=== PATIENT | female | born 1985 | race Caucasian/White ===

== ENCOUNTER 2019-03-16 13:14 | Emergency (ER) | payer SELFPAY ==
[2019-03-16] MEDS ORDERED: ONDANSETRON HCL INJ/PF 4 MG/2 ML SDV IV ONE (14:41)
--- NOTE | 2019-03-16 14:43 | ER Document Report ---
ED Medical Screen (RME) - General Chief Complaint: Abdominal Pain Stated Complaint: ABDOMINAL PAIN Time Seen by Provider: 03/16/19 14:38 TRAVEL OUTSIDE OF THE [place] IN LAST 30 DAYS: No - HPI Notes: 03/16/19 14:42 Patient is a 33-year-old female with a history tubal ligation who presents complaining of right upper quadrant abdominal pain has been present for the past 3 weeks. Patient states that it is worse with food intake including fatty foods. Pain does not radiate. She has had associated nausea without vomiting. She is urinating normally and having normal bowel movements with the last one this morning. No melena or hematochezia. No other vaginal discharge, odor, or bleeding. On a side, patient states that she would like test for chlamydia gonorrhea although she has no lower pelvic pain or no discharge. She is concerned that she may have been exposed by partner. No fever. I have treated and performed a rapid initial assessment of this patient. A comprehensive ED assessment and evaluation of the patient, analysis of test results and completion of medical decision making process will be conducted by additional ED providers. PHYSICAL EXAMINATION: GENERAL: Well-appearing, well-nourished and in no acute distress. A&Ox4. Answers questions appropriately. Abd: + RUQ tenderness. No lower tenderness noted. - Related Data Allergies/Adverse Reactions: No Known Allergies Allergy (Verified 03/16/19 14:37) Past Medical History GI Medical History: Reports: Hx Endoscopy Musculoskeltal Medical History: Reports Hx Arthritis, Reports Hx Muscle Weakness, Reports Hx Musculoskeletal Deformity, Reports Hx Musculoskeletal Trauma Psychiatric Medical History: Reports: Hx Anxiety, Hx Post Traumatic Stress Disorder Traumatic Medical History: Reports: Hx Fractures Past Surgical History: Reports: Hx Section, Hx Gynecologic Surgery - LEEP, Hx Orthopedic Surgery, Hx Tubal Ligation - Immunizations Immunizations up to date: Yes Hx Diphtheria, Pertussis, Tetanus Vaccination: Yes - 2012 Physical Exam - Vital signs Vitals: Temp Pulse Resp BP Pulse Ox 98.2 F 90 16 99/71 L 100 03/16/19 14:03/16/19 14:03/16/19 14:03/16/19 14:03/16/19 14:09 Course - Vital Signs Vital signs: Temp Pulse Resp BP Pulse Ox 98.2 F 90 16 99/71 L 100 03/16/19 14:03/16/19 14:03/16/19 14:03/16/19 14:03/16/19 14:09
--- NOTE | 2019-03-16 15:48 | RADIOLOGY REPORT (SQ) ---
EXAM DESCRIPTION: U/S ABDOMEN LIMITED W/O DOP COMPLETED DATE/TIME: 03/16/2019 3:37 pm REASON FOR STUDY: RUQ pain COMPARISON: None. TECHNIQUE: Dynamic and static grayscale images acquired of the abdomen and recorded on PACS. Additio nal selected color Doppler and spectral images recorded. LIMITATIONS: None. FINDINGS: PANCREAS: No masses. Visualized pancreatic duct normal caliber. LIVER: No masses. Increased echogenicity. LIVER VASCULATURE: Normal directional flow of the main portal vein and hepatic veins. GALLBLADDER: Distended gallbladder containing numerous small gallstones. Mild gallbladder wall thick ening measuring up to 4 mm. No pericholecystic fluid. ULTRASOUND-DETECTED GUNN'S SIGN: Negative. INTRAHEPATIC DUCTS AND COMMON DUCT: CBD and intrahepatic ducts normal caliber. No filling defects. INFERIOR VENA CAVA: Normal flow. AORTA: No aneurysm. RIGHT KIDNEY: Normal size. Normal echogenicity. No solid or suspicious masses. No hydronephrosis. No calcifications. PERITONEAL AND RIGHT PLEURAL SPACE: No ascites or effusions. OTHER: No other significant findings. IMPRESSION: 1. Distended gallbladder containing numerous small gallstones. Mild gallbladder wall th ickening measuring up to 4 mm. No pericholecystic fluid. No biliary ductal dilation. Negative sono graphic Gunn's sign. HIDA may be used to further evaluate for patency of the cystic duct if desire d. 2. Hepatic steatosis. TECHNICAL DOCUMENTATION: JOB ID: [id number] [employer]- All Rights Reserved Reading location - IP/workstation name: [id number]
[2019-03-16 16:30] LABS: APPEARANCE,URINE SLIGHTLY-CLOUDY; BILIRUBIN,URINE NEGATIVE (NEGATIVE); COLOR,URINE YELLOW; GLUCOSE, URINE NEGATIVE (NEGATIVE); KETONES,URINE NEGATIVE (NEGATIVE); LEUKOCYTE ESTERASE,URINE SMALL (NEGATIVE); NITRITE,URINE POSITIVE (NEGATIVE); PROTEIN,URINE NEGATIVE (NEGATIVE); URINE SPECIFIC GRAVITY 1.017
[2019-03-16 16:42] LABS: ABSOLUTE BASOPHILS # (AUTO) 0.1 10^3/uL (0.0-0.2); ABSOLUTE EOSINOPHILS # (AUTO) 0.1 10^3/uL (0.0-0.6); ABSOLUTE LYMPHOCYTES (AUTO) 3.1 10^3/uL (0.5-4.7); ABSOLUTE MONOCYTES (AUTO) 1.1 10^3/uL (0.1-1.4); ABSOLUTE NEUT (AUTO) 8.6 10^3/uL (1.7-8.2); BASOPHILS % (AUTO) 0.6 % (0-2); HEMATOCRIT 39.5 % (36.0-47.0); HEMOGLOBIN 12.8 g/dL (12.0-15.5); LYMPHOCYTES % (AUTO) 23.8 % (13-45); MEAN CORPUSCULAR HEMOGLOBIN 24.4 pg (27.0-33.4); MEAN CORPUSCULAR HGB CONC 32.5 g/dL (32.0-36.0); MEAN CORPUSCULAR VOLUME 75 fl (80-97); MONOCYTES % (AUTO) 8.6 % (3-13); PLATELET COUNT 315 10^3/uL (150-450); RED BLOOD COUNT 5.25 10^6/uL (3.72-5.28); RED CELL DISTRIBUTION WIDTH 15.1 % (11.5-14.0); TOTAL CELLS COUNTED % (AUTO) 100 %; WHITE BLOOD COUNT 13.1 10^3/uL (4.0-10.5)
[2019-03-16] MEDS ORDERED: KETOROLAC TROMETHAMINE INJ/PF 30 MG/1 ML SDV IV ONE (17:05)
[2019-03-16] MEDS ORDERED: PROMETHAZINE HCL INJ 25 MG/1 ML VIAL IV ONE (17:06)
[2019-03-16 17:12] LABS: ALBUMIN 3.9 g/dL (3.5-5.0); ALKALINE PHOSPHATASE 78 U/L (38-126); ANION GAP 10 (5-19); ASPARTATE AMINO TRANSFERASE 79 U/L (14-36); BILIRUBIN,DIRECT 0.3 mg/dL (0.0-0.4); BILIRUBIN,TOTAL 0.6 mg/dL (0.2-1.3); BLOOD UREA NITROGEN 12 mg/dL (7-20); CALCIUM 9.4 mg/dL (8.4-10.2); CARBON DIOXIDE 25 mmol/L (22-30); CHLORIDE 105 mmol/L (98-107); GLUCOSE 87 mg/dL (75-110); POTASSIUM 4.3 mmol/L (3.6-5.0); TOTAL PROTEIN 7.1 g/dL (6.3-8.2)
[2019-03-16] MEDS ORDERED: AZITHROMYCIN 250 MG TABLET PO ONE (17:17)
[2019-03-16] MEDS ORDERED: CEFTRIAXONE INJ 250 MG VIAL IM ONE (17:17)
[2019-03-16] MEDS ORDERED: LIDOCAINE 1% INJ-PF (10 MG/ML) 30 ML SDV NEB ONE (17:17)
[2019-03-16 17:43] LABS: BACTERIA (WET MOUNT) 4+ BACTERIA SEEN; EPITHELIALS (WET MOUNT) 4+ EPITHELIALS SEEN; RBCS (WET MOUNT) NO RBCS SEEN; T.VAGINALIS (WET MOUNT) TRICHOMONAS SEEN; WBCS (WET MOUNT) 4+ WBCS SEEN; YEAST (WET MOUNT) NO YEAST SEEN
[2019-03-16] MEDS ORDERED: FENTANYL CITRATE INJ/PF 100 MCG/2 ML AMPUL IV ONE (17:51)
--- NOTE | 2019-03-16 17:52 | ER Document Report ---
ED GI/ - General Chief Complaint: Upper Abdominal Pain Stated Complaint: ABDOMINAL PAIN Time Seen by Provider: 03/16/19 14:38 Notes: RME NOTE: Patient is a 33-year-old female with a history tubal ligation who presents complaining of right upper quadrant abdominal pain has been present for the past 3 weeks. Patient states that it is worse with food intake including fatty foods. Pain does not radiate. She has had associated nausea without vomiting. She is urinating normally and having normal bowel movements with the last one this morning. No melena or hematochezia. No other vaginal discharge, odor, or bleeding. On a side, patient states that she would like test for chlamydia gonorrhea although she has no lower pelvic pain or no discharge. She is concerned that she may have been exposed by partner. No fever. MY HPI: Upon my initial assessment of the patient her ultrasound has already been resulted. I discussed with patient's awaiting lab results to correlate with her ultrasound. I also discussed giving her pain management for continued right upper quadrant pain. Patient was administered Zofran but states she continues to be nauseated. Phenergan will be ordered. Patient voices that her sexual partner told her he tested positive for gonorrhea. Patient is denying any vaginal discharge or dysuria. She is denying any lower abdominal pain. Patient voices she would like to be prophylactically treated for gonorrhea and chlamydia. Patient would like to refuse a pelvic, states she will do self swabs. TRAVEL OUTSIDE OF THE [place] IN LAST 30 DAYS: No - Related Data Allergies/Adverse Reactions: No Known Allergies Allergy (Verified 03/16/19 14:37) Past Medical History - General Information source: Patient - Social History Smoking Status: Current Every Day Smoker Chew tobacco use (# tins/day): No Frequency of alcohol use: None Drug Abuse: Marijuana Family History: CAD, CVA, DM, Hyperlipidemia, Hypertension, Malignancy, Thyroid Disfunction Patient has suicidal ideation: No Patient has homicidal ideation: No GI Medical History: Reports: Hx Endoscopy Musculoskeletal Medical History: Reports Hx Arthritis, Reports Hx Muscle Wea kness, Reports Hx Musculoskeletal Deformity, Reports Hx Musculoskeletal Trauma Psychiatric Medical History: Reports: Hx Anxiety, Hx Post Traumatic Stress Disorder Traumatic Medical History: Reports: Hx Fractures Past Surgical History: Reports: Hx Section, Hx Gynecologic Surgery - LEEP, Hx Orthopedic Surgery, Hx Tubal Ligation - Immunizations Immunizations up to date: Yes Hx Diphtheria, Pertussis, Tetanus Vaccination: Yes - 2012 Review of Systems - Review of Systems Constitutional: denies: Fever EENT: No symptoms reported Cardiovascular: No symptoms reported Respiratory: No symptoms reported Gastrointestinal: See HPI Genitourinary: See HPI Female Genitourinary: See HPI Musculoskeletal: No symptoms reported Skin: No symptoms reported Hematologic/Lymphatic: No symptoms reported Neurological/Psychological: No symptoms reported Physical Exam - Vital signs Vitals: Temp Pulse Resp BP Pulse Ox 98.2 F 90 16 99/71 L 100 03/16/19 14:03/16/19 14:03/16/19 14:03/16/19 14:03/16/19 14:09 - Notes Notes: GENERAL: Alert, interacts well. No acute distress. HEAD: Normocephalic, atraumatic. EYES: Pupils equal, round, and reactive to light. Extraocular movements intact. ENT: Oral mucosa moist, tongue midline. NECK: Full range of motion. Supple. Trachea midline. LUNGS: Clear to auscultation bilaterally, no wheezes, rales, or rhonchi. No respiratory distress. HEART: Regular rate and rhythm. No murmur ABDOMEN: Soft, right upper quadrant pain noted, otherwise abdominal exam benign. Non-distended. Bowel sounds present in all 4 quadrants. EXTREMITIES: Moves all 4 extremities spontaneously. No edema, normal radial and dorsalis pedis pulses bilaterally. No cyanosis. BACK: no cervical, thoracic, lumbar midline tenderness. No saddle anesthesia, normal distal neurovascular exam. No CVA tenderness noted bilaterally. NEUROLOGICAL: Alert and oriented x3. Normal speech. cranial nerves II through XII grossly intact PSYCH: Normal affect, normal mood. SKIN: Warm, dry, normal turgor. No rashes or lesions noted. Course - Re-evaluation Re-evalutation: Patient's ultrasound results have already been resulted upon my initial asse ssment. Ultrasound is stating patient had no Gunn sign. Upon my examination of patient's right upper quadrant she screams and grabs my hands. I have again discussed with patient I will wait for lab results to correlate with ultrasound results. I will treat patient's pain and continued nausea. 03/16/19 17:51 Nurse brings my attention patient is refusing Toradol. States "that never works for me." Fentanyl ordered. Nurse brings to my attention while I am in another patient room that the patient has left the emergency room. Prophylactic gonorrhea and Chlamydia TX were administered. Initial Flagyl dose was also noted to be given for positive trichomonas. I was unable to discuss these results with the patient at bedside as she has left the emergency room. Patient did not receive any prescriptions for trichomonas, BV, or for potential urinary tract infection which was sent for culture. I was unable to reassess patient's right upper quadrant abdominal pain after fentanyl and Phenergan administration. Laboratory 03/16/19 03/16/19 03/16/19 16:05 16:20 16:20 WBC 13.1 H RBC 5.25 Hgb 12.8 Hct 39.5 MCV 75 L MCH 24.4 L MCHC 32.5 RDW 15.1 H Plt Count 315 Lymph % (Auto) 23.8 Braxton % (Auto) 8.6 Eos % (Auto) 1.0 Baso % (Auto) 0.6 Absolute Neuts (auto) 8.6 H Absolute Lymphs (auto) 3.1 Absolute Monos (auto) 1.1 Absolute Eos (auto) 0.1 Absolute Basos (auto) 0.1 Seg Neutrophils % 66.0 Sodium 140.4 Potassium 4.3 Chloride 105 Carbon Dioxide 25 Anion Gap 10 BUN 12 Creatinine 0.98 Est GFR ( Amer) > 60 Est GFR (MDRD) Non-Af > 60 Glucose 87 Calcium 9.4 Total Bilirubin 0.6 Direct Bilirubin 0.3 Neonat Total Bilirubin Not Reportable Neonat Direct Bilirubin Not Reportable Neonat Indirect Bili Not Reportable AST 79 H ALT 81 Alkaline Phosphatase 78 Total Protein 7.1 Albumin 3.9 Lipase 147.1 Urine Color YELLOW Urine Appearance SLIGHTLY-CLOUDY Urine pH 5.0 Ur Specific [place] 1.017 Urine Protein NEGATIVE Urine Glucose (UA) NEGATIVE Urine Ketones NEGATIVE Urine Blood NEGATIVE Urine Nitrite POSITIVE H Urine Bilirubin NEGATIVE Urine Urobilinogen 2.0 H Ur Leukocyte Esterase SMALL H Urine WBC (Auto) 5 Urine RBC (Auto) 4 Urine Bacteria (Auto) 3+ Squamous Epi Cells Auto 3 Urine Mucus (Auto) OCC Urine Ascorbic Acid NEGATIVE Urine HCG, Qual NEGATIVE Epi Cells (Wet Prep) Bacteria (Wet Prep) Trichomonas (Wet Prep) Vaginal WBC Vaginal RBC Vaginal Yeast Chlamydia DNA (PCR) N.gonorrhoeae DNA (PCR) 03/16/19 03/16/19 17:10 17:10 WBC RBC Hgb Hct MCV MCH MCHC RDW Plt Count Lymph % (Auto) Braxton % (Auto) Eos % (Auto) Baso % (Auto) Absolute Neuts (auto) Absolute Lymphs (auto) Absolute Monos (auto) Absolute Eos (auto) Absolute Basos (auto) Seg Neutrophils % Sodium Potassium Chloride Carbon Dioxide Anion Gap BUN Creatinine Est GFR ( Amer) Est GFR (MDRD) Non-Af Glucose Calcium Total Bilirubin Direct Bilirubin Neonat Total Bilirubin Neonat Direct Bilirubin Neonat Indirect Bili AST ALT Alkaline Phosphatase Total Protein Albumin Lipase Urine Color Urine Appearance Urine pH Ur Specific [place] Urine Protein Urine Glucose (UA) Urine Ketones Urine Blood Urine Nitrite Urine Bilirubin Urine Urobilinogen Ur Leukocyte Esterase Urine WBC (Auto) Urine RBC (Auto) Urine Bacteria (Auto) Squamous Epi Cells Auto Urine Mucus (Auto) Urine Ascorbic Acid Urine HCG, Qual Epi Cells (Wet Prep) 4+ EPITHELIALS SEEN Bacteria (Wet Prep) 4+ BACTERIA SEEN Trichomonas (Wet Prep) TRICHOMONAS SEEN Vaginal WBC 4+ WBCS SEEN Vaginal RBC NO RBCS SEEN Vaginal Yeast NO YEAST SEEN Chlamydia DNA (PCR) DETECTED H N.gonorrhoeae DNA (PCR) DETECTED H Abdomen Ultrasound 03/16/19 14:41 IMPRESSION: 1. Distended gallbladder containing numerous small gallstones. Mild gallbladder wall thickening measuring up to 4 mm. No pericholecystic fluid. No biliary ductal dilation. Negative sonographic Gunn's sign. HIDA may be used to further evaluate for patency of the cystic duct if desired. 2. Hepatic steatosis. 03/17/19 01:45 - Vital Signs Vital signs: Temp Pulse Resp BP Pulse Ox 98.0 F 72 18 97/57 L 100 03/16/19 17:59 03/16/19 17:59 03/16/19 17:59 03/16/19 17:59 03/16/19 17:59 - Laboratory Result Diagrams: 03/16/19 16:20 03/16/19 16:20 Laboratory results interpreted by me: 03/16/19 03/16/19 03/16/19 16:05 16:20 16:20 WBC 13.1 H MCV 75 L MCH 24.4 L RDW 15.1 H Absolute Neuts (auto) 8.6 H AST 79 H Urine Nitrite POSITIVE H Urine Urobilinogen 2.0 H Ur Leukocyte Esterase SMALL H Chlamydia DNA (PCR) N.gonorrhoeae DNA (PCR) 03/16/19 17:10 WBC MCV MCH RDW Absolute Neuts (auto) AST Urine Nitrite Urine Urobilinogen Ur Leukocyte Esterase Chlamydia DNA (PCR) DETECTED H N.gonorrhoeae DNA (PCR) DETECTED H Discharge - Discharge Clinical Impression: Trichomonas infection, Bacterial vaginosis Abdominal pain Qualifiers: Abdominal location: right upper quadrant Qualified Code(s): R10.11 - Right upper quadrant pain Nausea & vomiting Qualifiers: Vomiting type: unspecified Vomiting Intractability: unspecified Qualified Code(s): R11.2 - Nausea with vomiting, unspecified Urinary tract infection Qualifiers: Urinary tract infection type: acute cystitis Hematuria presence: without hematuria Qualified Code(s): N30.00 - Acute cystitis without hematuria Cholelithiasis Qualifiers: Cholelithiasis location: other site Biliary obstruction: without biliary obstruction Qualified Code(s): K80.80 - Other cholelithiasis without obstruction Condition: Fair Disposition: ELOPED
[2019-03-16] MEDS ORDERED: METRONIDAZOLE 500 MG TABLET PO ONE (17:53)
[2019-03-16 18:02] VITALS: BP 97/57
[2019-03-16 19:14] LABS: CHLAM PCR DETECTED (NOT DETECT)
== END 2019-03-16 19:07 | disposition left against medical advice (07) ==
LOC: ER 13:14
DX: N76.0 Acute vaginitis (principal); B96.89 Other specified bacterial agents as the cause of diseases classified elsewhere; A59.00 Urogenital trichomoniasis, unspecified; K80.80 Other cholelithiasis without obstruction; N30.00 Acute cystitis without hematuria; R10.11 Right upper quadrant pain; R10.10 Upper abdominal pain, unspecified; R11.2 Nausea with vomiting, unspecified
CPT/HCPCS: 36415; 87086; 87210; 83690; 85025; 81025; 87088; 80053; 81001; 87186; 87491; 87591; 76705; J3010; J3490; J2550; J2405; J0696; 96374; 96375; 99281

== ENCOUNTER 2019-08-28 13:47 | Emergency (ER) | payer SELFPAY ==
--- NOTE | 2019-08-28 14:08 | ER Document Report ---
ED Medical Screen (RME) - General Chief Complaint: Psych Problem Stated Complaint: PSYCH EVAL Time Seen by Provider: 08/28/19 14:02 Information source: Patient TRAVEL OUTSIDE OF THE U.[place] IN LAST 30 DAYS: No - HPI Onset: Other - This is a 33-year-old female presented to the emergency room today with suicidal ideation no particular plan here for evaluation. - Related Data Allergies/Adverse Reactions: No Known Allergies Allergy (Verified 03/16/19 14:37) Past Medical History GI Medical History: Reports: Hx Endoscopy Musculoskeltal Medical History: Reports Hx Arthritis, Reports Hx Muscle Weakness, Reports Hx Musculoskeletal Deformity, Reports Hx Musculoskeletal Traum a Psychiatric Medical History: Reports: Hx Anxiety, Hx Post Traumatic Stress Disorder Traumatic Medical History: Reports: Hx Fractures Past Surgical History: Reports: Hx Section, Hx Gynecologic Surgery - LEEP, Hx Orthopedic Surgery, Hx Tubal Ligation - Immunizations Immunizations up to date: Yes Hx Diphtheria, Pertussis, Tetanus Vaccination: Yes - 2012 Physical Exam - Vital signs Vitals: Temp Pulse Resp BP Pulse Ox 98.5 F 79 18 109/62 100 08/28/19 13:55 08/28/19 13:55 08/28/19 13:55 08/28/19 13:55 08/28/19 13:55 Course - Vital Signs Vital signs: Temp Pulse Resp BP Pulse Ox 98.5 F 79 18 109/62 100 08/28/19 13:55 08/28/19 13:55 08/28/19 13:55 08/28/19 13:55 08/28/19 13:55
[2019-08-28 14:43] LABS: ABSOLUTE BASOPHILS # (AUTO) 0.1 10^3/uL (0.0-0.2); ABSOLUTE EOSINOPHILS # (AUTO) 0.1 10^3/uL (0.0-0.6); ABSOLUTE LYMPHOCYTES (AUTO) 2.4 10^3/uL (0.5-4.7); ABSOLUTE MONOCYTES (AUTO) 0.6 10^3/uL (0.1-1.4); ABSOLUTE NEUT (AUTO) 6.5 10^3/uL (1.7-8.2); BASOPHILS % (AUTO) 0.6 % (0-2); EOSINOPHILS % (AUTO) 1.2 % (0-6); HEMATOCRIT 37.9 % (36.0-47.0); HEMOGLOBIN 13.1 g/dL (12.0-15.5); LYMPHOCYTES % (AUTO) 24.5 % (13-45); MEAN CORPUSCULAR HEMOGLOBIN 26.5 pg (27.0-33.4); MEAN CORPUSCULAR HGB CONC 34.5 g/dL (32.0-36.0); MEAN CORPUSCULAR VOLUME 77 fl (80-97); MONOCYTES % (AUTO) 6.4 % (3-13); PLATELET COUNT 321 10^3/uL (150-450); RED BLOOD COUNT 4.93 10^6/uL (3.72-5.28); RED CELL DISTRIBUTION WIDTH 15.8 % (11.5-14.0); SEGMENTED NEUTROPHILS % (AUTO) 67.3 % (42-78); TOTAL CELLS COUNTED % (AUTO) 100 %; WHITE BLOOD COUNT 9.6 10^3/uL (4.0-10.5)
[2019-08-28 14:53] LABS: APPEARANCE,URINE SLIGHTLY-CLOUDY; BILIRUBIN,URINE NEGATIVE (NEGATIVE); COLOR,URINE YELLOW; GLUCOSE, URINE NEGATIVE (NEGATIVE); KETONES,URINE NEGATIVE (NEGATIVE); LEUKOCYTE ESTERASE,URINE NEGATIVE (NEGATIVE); NITRITE,URINE POSITIVE (NEGATIVE); PROTEIN,URINE NEGATIVE (NEGATIVE); URINE SPECIFIC GRAVITY 1.016; UROBILINOGEN,URINE NEGATIVE mg/dL (<2.0)
[2019-08-28 15:05] LABS: ACETAMINOPHEN < 10 ug/mL (10-30); ALCOHOL < 10 mg/dL (NONE DETECTED); ALKALINE PHOSPHATASE 68 U/L (38-126); ANION GAP 9 (5-19); ASPARTATE AMINO TRANSFERASE 49 U/L (14-36); BILIRUBIN,DIRECT 0.3 mg/dL (0.0-0.4); BILIRUBIN,TOTAL 0.4 mg/dL (0.2-1.3); BLOOD UREA NITROGEN 11 mg/dL (7-20); CARBON DIOXIDE 28 mmol/L (22-30); CHLORIDE 104 mmol/L (98-107); GLUCOSE 74 mg/dL (75-110); POTASSIUM 3.6 mmol/L (3.6-5.0); SALICYLATE < 1.0 mg/dL (2.0-20.0); TOTAL PROTEIN 7.3 g/dL (6.3-8.2); URINE AMPHETAMINES SCREEN UNCONFIRMED POSITIVE; URINE BARBITURATES SCREEN NEGATIVE; URINE BENZODIAZEPINES SCREEN NEGATIVE; URINE COCAINE SCREEN NEGATIVE; URINE MARIJUANA (THC) SCREEN UNCONFIRMED POSITIVE; URINE METHADONE SCREEN NEGATIVE; URINE PHENCYCLIDINE SCREEN NEGATIVE
[2019-08-28] MEDS ORDERED: LORAZEPAM 1 MG TABLET PO ONE (15:19)
--- NOTE | 2019-08-28 15:19 | ER Document Report ---
ED General <JOELLE HAND - Last Filed: 08/28/19 17:33> - General TRAVEL OUTSIDE OF THE [place] IN LAST 30 DAYS: No <LETTY DUONG - Last Filed: 08/28/19 18:11> - General Chief Complaint: Psych Problem Stated Complaint: PSYCH EVAL Time Seen by Provider: 08/28/19 14:02 Primary Care Provider: [facility] [Outside] - Follow up as needed Notes: Patient is a 33-year-old white female with a past medical history of PTSD and intermittent depression who presents to the emergency department the chief complaint of suicidal ideations. The patient reports about 3 days ago she newly became homeless. She states she has nowhere to go and no one to help her. She states she is been under a lot of stress and can no longer take it. She states she is begun to hear voices in her head that are telling her to kill herself. She states she feels that this would be a better option than having to try to deal with the struggles she is undergoing. She admits that she is thought of shooting herself versus taking prescription medicines off the street to overdose. She does report having access to guns. She denies any suicidal attempts. She denies any hallucinations. (LETTY DUONG) - Related Data Allergies/Adverse Reactions: No Known Allergies Allergy (Verified 03/16/19 14:37) Past Medical History - General Information source: Patient - Social History Smoking Status: Current Every Day Smoker Frequency of alcohol use: None Drug Abuse: Marijuana Family History: CAD, CVA, DM, Hyperlipidemia, Hypertension, Malignancy, Thyroid Disfunction Patient has suicidal ideation: Yes Patient has homicidal ideation: No GI Medical History: Reports: Hx Endoscopy Musculoskeletal Medical History: Reports Hx Arthritis, Reports Hx Muscle Weakness, Reports Hx Musculoskeletal Deformity, Reports Hx Musculoskeletal Trauma Psychiatric Medical History: Reports: Hx Anxiety, Hx Post Traumatic Stress Disorder Traumatic Medical History: Reports: Hx Fractures Past Surgical History: Reports: Hx Section, Hx Gynecologic Surgery - LEEP, Hx Orthopedic Surgery, Hx Tubal Ligation - Immunizations Immunizations up to date: Yes Hx Diphtheria, Pertussis, Tetanus Vaccination: Yes - 2012 <LETTY DUONG - Last Filed: 08/28/19 18:11> Review of Systems - Review of Systems Neurological/Psychological: Suicidal ideation -: Yes All other systems reviewed and negative <LETTY DUONG - Last Filed: 08/28/19 18:11> Physical Exam - General General appearance: Alert In distress: Mild - Respiratory Respiratory status: No respiratory distress Chest status: Nontender Breath sounds: Normal Chest palpation: Normal - Cardiovascular Rhythm: Regular Heart sounds: Normal auscultation Murmur: No - Extremities General upper extremity: Normal inspection, Nontender, Normal color, Normal ROM, Normal temperature General lower extremity: Normal inspection, Nontender, Normal color, Normal ROM, Normal temperature, Normal weight bearing. No: Say's sign - Neurological Neuro grossly intact: Yes Cognition: Normal Orientation: AAOx4 Willis Coma Scale Eye Opening: Spontaneous [place] Coma Scale Verbal: Oriented Willis Coma Scale Motor: Obeys Commands Willis Coma Scale Total: 15 Speech: Normal Motor strength normal: LUE, RUE, LLE, RLE Sensory: Normal - Psychological Associated symptoms: Anxious, Tearful - Skin Skin Temperature: Warm Skin Moisture: Dry Skin Color: Normal <LETTY DUONG - Last Filed: 08/28/19 18:11> - Vital signs Vitals: Temp Pulse Resp BP Pulse Ox 98.5 F 79 18 109/62 100 08/28/19 13:55 08/28/19 13:55 08/28/19 13:55 08/28/19 13:55 08/28/19 13:55 Course - Laboratory Result Diagrams: 08/28/19 14:28 08/28/19 14:28 <JOELLE HAND - Last Filed: 08/28/19 17:33> - Laboratory Result Diagrams: 08/28/19 14:28 08/28/19 14:28 <LETTY DUONG - Last Filed: 08/28/19 18:11> - Re-evaluation Re-evalutation: 08/28/19 15:20 Patient will be held at this time, she is currently voluntary and agreeable to stay for help. She has evidence of a mild UTI, given Rocephin IM. Pending psychiatry consult patient was given Ativan to help calm her. 08/28/19 15:20 other than a mild UTI she is medically cleared. Psychiatry will see her. 08/28/19 18:10 Psychiatry is consulted on the patient. The patient has requested mobile crisis intervene to help her with further outpatient measures. The patient is agreeable to outpatient plan. She does express some secondary gain regarding benzodiazepine type medications. She was given an Ativan here. Offered Vistaril for home, she declined. She has been cleared from a psychiatry standpoint in regards to suicidal ideations or involuntary commitment. She is felt to be stable and appropriate for discharge and outpatient follow-up at this time. [facility] is currently on their way to obtain the patient. She will be released to their custody. (LETTY DUONG) - Vital Signs Vital signs: Temp Pulse Resp BP Pulse Ox 98.5 F 79 18 109/62 100 08/28/19 13:55 08/28/19 13:55 08/28/19 13:55 08/28/19 13:55 08/28/19 13:55 - Laboratory Laboratory results interpreted by me: 08/28/19 08/28/19 08/28/19 14:28 14:28 14:28 MCV 77 L MCH 26.5 L RDW 15.8 H Est GFR (MDRD) Non-Af 59 L Glucose 74 L AST 49 H ALT 54 H Urine Nitrite POSITIVE H Salicylates < 1.0 L Acetaminophen < 10 L Discharge <HANDJOELLE - Last Filed: 08/28/19 17:33> <LETTY DUONG - Last Filed: 08/28/19 18:11> - Discharge Clinical Impression: Anxiety Condition: Stable Disposition: HOME, SELF-CARE Instructions: Anxiety ([facility]) Additional Instructions: You have been evaluated by both medical and behavioral health teams for suicidal ideation and have been deemed appropriate for discharge. While in the emergency department you received the following services: Medical screening and assessm ent, nursing services, dietary services, pharmacological services, one-on-one counseling and/or psychotherapy, environmental services, and continuous observation by a patient director of safety and security. You have been provided with a street sheet resource list with options for the homeless detention and soup kitchen highlighted. You have been provided with a mental health resource list. [facility] has been contacted for assistance at discharge. You are encouraged to work collaboratively with [facility] for resources to help you meet your basic needs. AMPHETAMINE / METHAMPHETAMINE ABUSE: Amphetamines are addicting stimulants. Amphetamines overstimulate the nervous system and give a false feeling of power and mastery. These drugs may be obtained as prescription pills for weight loss, narcolepsy, or attention-deficit disorder. More often they're bought as an illegal street drug, methamphetamine (crank, crystal, speed). Using amphetamines repeatedly can lead to serious medical problems including malnutrition, severe depression, and paranoia. It can take increasing amounts to feel good. Eventually, there will be a "burn out." When you go off amphetamines there is a period of depression that may last for weeks or even months. High doses of amphetamines can cause seizures, confusion, hallucinations, delusions, high blood pressure, muscle damage, heart damage, or sudden . Many times these deadly complications occur even with "normal" doses. Injection of amphetamines is risky for developing abscesses, endocarditis (heart infection), pneumonia, and AIDS. Withdrawal from amphetamines often causes anxiety, depression, and drug cravings. Some users become paranoid and psychotic. There may be cramps, nausea, and vomiting. Many treatment programs are available, but you must make the decision to quit. Medication can be prescribed to control the symptoms of amphetamine toxicity (beta blockers or benzodiazepines). Withdrawal symptoms may require tranquilizers. SUICIDAL IDEATION: Suicidal ideation is a common medical term for thoughts about suicide, which may be as detailed as a formulated plan, without the suicidal act itself. Although most people who undergo suicidal ideation do not commit suicide, some go on to make suicide attempts. The range of suicidal ideation varies greatly from fleeting to detailed planning, role playing, and unsuccessful attempts. While thoughts about suicide are common, most people do not carry out serious actions to commit suicide. Based upon your evaluation and discussion with you, we do not believe you are currently at risk to act upon your thoughts of suicide. You have agreed to return to the Emergency Department, at any time, if you feel inclined to act upon your suicidal thoughts. AT ANY TIME, IF YOUR SYMPTOMS CHANGE SIGNIFICANTLY OR WORSEN OR YOU DEVELOP NEW SYMPTOMS, RETURN TO THE EMERGENCY DEPARTMENT IMMEDIATELY FOR RE-EVALUATION. Referrals: [facility] [Outside] - Follow up as needed
[2019-08-28] MEDS ORDERED: CEFTRIAXONE INJ 1000 MG VIAL IM ONE (15:20)
--- NOTE | 2019-08-28 18:18 | EKG REPORT ---
SEVERITY:- NORMAL ECG - SINUS RHYTHM : Confirmed by: Gill Portillo 28-Aug-2019 18:16:53
[2019-08-28 18:30] VITALS: BP 110/64
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
== END 2019-08-28 18:31 | disposition home or self-care (01) ==
LOC: ER 13:47
DX: F41.9 Anxiety disorder, unspecified (principal); R45.851 Suicidal ideations; F32.9 Major depressive disorder, single episode, unspecified; Z59.0 Homelessness; F17.200 Nicotine dependence, unspecified, uncomplicated
CPT/HCPCS: 93005; 99285; 96372; 36415; 80307 ×4; 85025; 80053; 81001; 93010; J0696

== ENCOUNTER 2019-12-23 17:51 | Emergency (ER) | payer SELFPAY ==
--- NOTE | 2019-12-23 18:45 | ER Document Report ---
ED General - General Chief Complaint: Diarrhea Stated Complaint: SORE THROAT Notes: Patient is a 33-year-old white female with a history of prior C-sections, tubal ligation in 2014 with current methamphetamine abuse and marijuana abuse who is a current everyday smoker who presents to the emergency department with a chief complaint of "the shits". Patient reports she stopped using methamphetamine about 4 days ago. She reports about 3 days ago she began having some diarrhea. She is unable to describe that but refers to it as "shits". She states this is been associated with some nausea. She reports that she is about a week late on her normal menstrual cycle. She is sexually active unprotected and concern for possible STD. She denies any vaginal discharge or bleeding. Denies any urinary complaints. Admits to some vague abdominal discomfort that is diffuse. Denies any chest pain or shortness of breath but admits to some associated sore throat with swallowing. Denies any copious purulence or swelling in the throat. Denies any known fevers or recent travel. States she is not had any sick contacts that she "keep to myself". No fevers chills or night sweats. TRAVEL OUTSIDE OF THE [place] IN LAST 30 DAYS: No - Related Data Allergies/Adverse Reactions: No Known Allergies Allergy (Verified 03/16/19 14:37) Past Medical History - Social History Smoking Status: Current Every Day Smoker Drug Abuse: Marijuana, Methamphetamine Family History: CAD, CVA, DM, Hyperlipidemia, Hypertension, Malignancy, Thyroid Disfunction Patient has homicidal ideation: No GI Medical History: Reports: Hx Endoscopy Musculoskeletal Medical History: Reports Hx Arthritis, Reports Hx Muscle Weakness, Reports Hx Musculoskeletal Deformity, Reports Hx Musculoskeletal Trauma Psychiatric Medical History: Reports: Hx Anxiety, Hx Post Traumatic Stress Disorder Traumatic Medical History: Reports: Hx Fractures Past Surgical History: Reports: Hx Section, Hx Gynecologic Surgery - LEEP, Hx Orthopedic Surgery, Hx Tubal Ligation - Immunizations Immunizations up to date: Yes Hx Diphtheria, Pertussis, Tetanus Vaccination: Yes - 2012 Review of Systems - Review of Systems Notes: As per HPI otherwise negative Physical Exam - Vital signs Vitals: Temp Pulse Resp BP Pulse Ox 99.0 F 96 16 109/80 99 12/23/19 18:00 12/23/19 18:00 12/23/19 18:00 12/23/19 18:00 12/23/19 18:00 - General General appearance: Appears well, Alert In distress: None - HEENT Head: Normocephalic, Atraumatic Eyes: Normal Conjunctiva: Normal Extraocular movements intact: Yes Eyelashes: Normal Pupils: PERRL Ears: Normal External canal: Normal Tympanic membrane: Normal Nasal: Normal Mouth/Lips: Normal Mucous membranes: Normal Pharynx: Normal, Other - Patent airway. Handling secretions well. No sublingual or submental swelling. No trismus. Uvula midline without edema or erythema. Airway patent. Neck: Normal, Supple. No: Lymphadenopathy - Respiratory Respiratory status: No respiratory distress Chest status: Nontender Breath sounds: Normal Chest palpation: Normal - Cardiovascular Rhythm: Regular Heart sounds: Normal auscultation - Abdominal Inspection: Normal Distension: No distension Bowel sounds: Normal Tenderness: Tender - Suprapubic tenderness Organomegaly: No organomegaly - Extremities General upper extremity: Normal inspection, Nontender, Normal color, Normal ROM, Normal temperature General lower extremity: Normal inspection, Nontender, Normal color, Normal ROM, Normal temperature, Normal weight bearing. No: Say's sign - Neurological Neuro grossly intact: Yes Cognition: Normal Orientation: AAOx4 [place] Coma Scale Eye Opening: Spontaneous [place] Coma Scale Verbal: Oriented [place] Coma Scale Motor: Obeys Commands [place] Coma Scale Total: 15 Speech: Normal Motor strength normal: LUE, RUE, LLE, RLE Sensory: Normal - Psychological Associated symptoms: Agitated, Anxious, Restlessness - Skin Skin Temperature: Warm Skin Moisture: Dry Skin Color: Normal Course - Re-evaluation Re-evalutation: 12/23/19 20:37 Mild evidence of bacteria in the urine however no significant findings or history consistent with UTI. However patient has requested prophylaxis for STD despite her lack of symptoms related to STDs. She states she would like to be covered in the event that they come back positive. Work-up is largely otherwise unremarkable. Suspect some component of multi-substance/polysubstance abuse withdrawal. She will hydrate orally, push clear fluids. Will prescribe Zofran for nausea and vomiting should it persist. She will follow-up in the next 24 to 48 hours for reevaluation. I advised that she return here any ER immediately with any new, persistent or worsening symptoms. She verbalized understood and agreed. - Vital Signs Vital signs: Temp Pulse Resp BP Pulse Ox 99.0 F 96 16 109/80 99 12/23/19 18:05 12/23/19 18:00 12/23/19 18:00 12/23/19 18:00 12/23/19 18:00 - Laboratory Result Diagrams: 12/23/19 18:47 12/23/19 18:47 Laboratory results interpreted by me: 12/23/19 12/23/19 18:47 18:47 RBC 5.58 H MCV 79 L MCH 26.5 L RDW 15.4 H Est GFR (MDRD) Non-Af 55 L AST 52 H ALT 54 H Total Protein 8.5 H Discharge - Discharge Clinical Impression: Concern about STD in female without diagnosis, Polysubstance abuse, Nausea vomiting and diarrhea Condition: Stable Disposition: HOME, SELF-CARE Instructions: Rocephin ([facility]), Antinausea Medication ([facility]) Additional Instructions: Follow-up with your regular doctor in 2 to 3 days for reevaluation. Return here or any ER immediately with any new, persistent or worsening symptoms. Prescriptions: Ondansetron [Zofran Odt 4 mg Tablet] 4 mg PO Q8 PRN #20 tab.rapdis PRN Reason:
[2019-12-23 19:16] LABS: ABSOLUTE BASOPHILS # (AUTO) 0.1 10^3/uL (0.0-0.2); ABSOLUTE EOSINOPHILS # (AUTO) 0.1 10^3/uL (0.0-0.6); ABSOLUTE LYMPHOCYTES (AUTO) 2.5 10^3/uL (0.5-4.7); ABSOLUTE MONOCYTES (AUTO) 0.6 10^3/uL (0.1-1.4); ABSOLUTE NEUT (AUTO) 6.7 10^3/uL (1.7-8.2); EOSINOPHILS % (AUTO) 1.3 % (0-6); HEMOGLOBIN 14.8 g/dL (12.0-15.5); LYMPHOCYTES % (AUTO) 25.2 % (13-45); MEAN CORPUSCULAR HEMOGLOBIN 26.5 pg (27.0-33.4); MEAN CORPUSCULAR HGB CONC 33.5 g/dL (32.0-36.0); MEAN CORPUSCULAR VOLUME 79 fl (80-97); PLATELET COUNT 310 10^3/uL (150-450); RED BLOOD COUNT 5.58 10^6/uL (3.72-5.28); RED CELL DISTRIBUTION WIDTH 15.4 % (11.5-14.0); SEGMENTED NEUTROPHILS % (AUTO) 66.5 % (42-78); TOTAL CELLS COUNTED % (AUTO) 100 %
[2019-12-23 19:22] LABS: APPEARANCE,URINE SLIGHTLY-CLOUDY; BILIRUBIN,URINE NEGATIVE (NEGATIVE); COLOR,URINE YELLOW; GLUCOSE, URINE NEGATIVE (NEGATIVE); KETONES,URINE NEGATIVE (NEGATIVE); PROTEIN,URINE NEGATIVE (NEGATIVE); URINE SPECIFIC GRAVITY 1.015; UROBILINOGEN,URINE NEGATIVE mg/dL (<2.0)
[2019-12-23 19:35] LABS: ALBUMIN 4.6 g/dL (3.5-5.0); ALKALINE PHOSPHATASE 86 U/L (38-126); ANION GAP 5 (5-19); ASPARTATE AMINO TRANSFERASE 52 U/L (14-36); BILIRUBIN,DIRECT 0.1 mg/dL (0.0-0.4); BILIRUBIN,TOTAL 0.4 mg/dL (0.2-1.3); BLOOD UREA NITROGEN 14 mg/dL (7-20); CARBON DIOXIDE 29 mmol/L (22-30); CHLORIDE 105 mmol/L (98-107); GLUCOSE 83 mg/dL (75-110); POTASSIUM 3.8 mmol/L (3.6-5.0); TOTAL PROTEIN 8.5 g/dL (6.3-8.2)
[2019-12-23] MEDS ORDERED: CEFTRIAXONE INJ 250 MG VIAL IM ONE (20:36)
[2019-12-23] MEDS ORDERED: AZITHROMYCIN 250 MG TABLET PO ONE (20:36)
[2019-12-23 20:39] LABS: CHLAM PCR NOT DETECTED (NOT DETECT)
[2019-12-23 20:58] VITALS: BP 109/78
== END 2019-12-23 20:59 | disposition home or self-care (01) ==
LOC: ER 17:51
DX: R19.7 Diarrhea, unspecified (principal); R11.2 Nausea with vomiting, unspecified; R10.819 Abdominal tenderness, unspecified site; F15.10 Other stimulant abuse, uncomplicated; F12.10 Cannabis abuse, uncomplicated; F17.200 Nicotine dependence, unspecified, uncomplicated; J02.9 Acute pharyngitis, unspecified; R45.1 Restlessness and agitation; Z20.2 Contact with and (suspected) exposure to infections with a predominantly sexual mode of transmission
CPT/HCPCS: 99283; 96372; 36415; 87070; 87880; 83690; 84703; 85025; 80053; 81001; 87491; 87591; J0696; 87077